=== PATIENT | male | born 1975 | race Hispanic/Latino ===

== ENCOUNTER 2019-03-08 17:14 | Emergency (ER) | payer OTHER ==
[2019-03-08] MEDS ORDERED: TRIPLE ANTIBIOTIC TP ONE (17:20)
[2019-03-08] MEDS ORDERED: LET TOPICAL TP ONE (17:20)
[2019-03-08] MEDS ORDERED: NACL 0.9% IR ONE (17:20)
[2019-03-08] MEDS ORDERED: BOOSTRIX IM ONE (17:20)
[2019-03-08] MEDS ORDERED: XYLOCAINE 1% 20 mL INFILTRATI ONE (17:20)
--- NOTE | 2019-03-08 17:21 | Event Note ---
ED Screening Note ED Screening Note: puncture wound to hand today bleeding controlled concern for lig/tendon involvement This initial assessment/diagnostic orders/clinical plan/treatment(s) is/are subject to change based on patients health status, clinical progression and re- assessment by fellow clinical providers in the ED. Further treatment and workup at subsequent clinical providers discretion. Patient/guardian urged not to elope from the ED as their condition may be serious if not clinically assessed and managed. Initial orders include:
[2019-03-08] MEDS ORDERED: ANCEF IM ONE (17:22)
--- NOTE | 2019-03-08 18:15 | XRay Report ---
PROCEDURE: XR HAND 3+V LT TECHNIQUE: Left hand 3 views HISTORY: SP PUNCTURE WOUND; PAIN MID HAND COMPARISONS: FINDINGS: No acute fracture identified. No dislocation seen. No radiopaque foreign bodies are observed. Joint s paces are within normal limits. IMPRESSION: Negative hand series. This document is electronically signed by Gómez Sánchez MD., Mar 08 2019 07:13:35 PM ET
[2019-03-08] MEDS ORDERED: WATER FOR INJ Sterile (PF) 10 ML ONE (18:22)
--- NOTE | 2019-03-08 19:39 | Emergency Department Report ---
HPI - General Chief Complaint: Wound/Laceration Time Seen by Provider: 03/08/19 17:19 - HPI HPI: 43-year-old male presents to the emergency department with complaint that he accidentally stabbed himself in the left hand with a knife. The patient is right-hand dominant and was using a knife to try and open a package when it slipped and went into his left palm. Since that time he has had some discomfort, some mild swelling, and has some difficulty with movement of his fourth and fifth fingers. He is unable to completely flex the pinky finger and he is unable to completely extend the fourth/ring finger. The patient says that he is up-to-date with his tetanus vaccination. He did not take anything for her symptoms prior to presentation. ED Past Medical Hx - Past Medical History Previous Medical History?: No - Surgical History Past Surgical History?: No - Social History Smoking Status: Never Smoker Substance Use Type: None - Medications Home Medications: Home Medications Medication Instructions Recorded Confirmed Last Taken Type HYDROcodone/APAP 5-325 [Bond 1 each PO Q6HR PRN #12 tablet 03/08/19 Unknown Rx 5/325] Sulfamethoxazole/Trimethoprim 1 each PO BID #14 tablet 03/08/19 Unknown Rx [Bactrim DS TAB] ED Review of Systems ROS: Stated complaint: L HAND INJURY Other details as noted in HPI Comment: All other systems reviewed and negative Constitutional: denies: chills, fever Eyes: denies: eye pain, vision change ENT: denies: ear pain, throat pain Respiratory: denies: cough, shortness of breath Cardiovascular: denies: chest pain, palpitations Gastrointestinal: denies: abdominal pain, vomiting Genitourinary: denies: dysuria, discharge Musculoskeletal: arthralgia. denies: back pain Skin: other (left palm laceration). denies: rash Neurological: numbness (there is some decreased sensation or numbness to the left pinky finger). denies: headache Physical Exam - Physical Exam Vital Signs: Vital Signs 03/08/19 17:38 Temperature 98 F Pulse Rate 98 H Respiratory 16 Rate Blood Pressure 158/101 O2 Sat by Pulse 98 Oximetry Physical Exam: GENERAL: The patient is well-developed well-nourished. HENT: Normocephalic. Atraumatic. Patient has moist mucous membranes. EYES: Extraocular motions are intact. NECK: Supple. Trachea is midline. CHEST/LUNGS: Clear to auscultation. There is no respiratory distress noted. HEART/CARDIOVASCULAR: Regular. There is no tachycardia. There is no murmur. ABDOMEN: There is no abdominal distention. SKIN: There is a 2 cm laceration to the mid to distal left palm in between the fourth and fifth fingers that is linear and approximated. There is some mild left dorsal hand swelling. NEURO: The patient is awake, alert, and oriented. The patient is cooperative. The patient has no focal neurologic deficits. The patient has normal speech. MUSCULOSKELETAL: There is tenderness to palpation of the left palm or the patient has a laceration and stab injury. The left fifth finger appears to mostly staying in full extension and he has difficulty flexing the finger, especially at the PIP joint. The left fourth finger appears stuck in mid flexion at the PIP joint and he is unable to fully extend it. There is capillary refill less than 2 seconds to all 5 fingers of the left hand and he has a radial pulse of +2 over 4. . ED Course Vital Signs 03/08/19 17:38 Temperature 98 F Pulse Rate 98 H Respiratory 16 Rate Blood Pressure 158/101 O2 Sat by Pulse 98 Oximetry - Consultations Consultation #1: 03/08/19 20:05 I called [facility] and spoke with Dr Toth, who is a plastic surgeon and hand surgery fellow, who is aeronautical inspector for the orthopedic hand team. Since the case presentation and physical examination and says that the patient is safe for discharge home and that they would not offer him any emergent surgical options for a tendon laceration as long as the patient is perfusing well. He agrees with the plan for a splint, antibiotics, pain control and the patient will need to follow up with a hand surgeon within 7 days. - Laceration /Wound Repair Left Hand Wound Location: upper extremity (left palm) Irrigated w/ Saline (ccs): 50 Anesthesia: 1% Lidocaine Volume Anesthetic (ccs): 2 Wound Repaired With: sutures Suture Size/Type: 5:0 Number of Sutures: 2 Layer Closure?: No Sterile Dressing Applied?: Yes ED Medical Decision Making - Radiology Data Radiology results: image reviewed interpreted by me: X-ray of his hand does not show any fracture, dislocation or any acute process. - Medical Decision Making This patient presents with a laceration to the left hand and some difficulty with range of motion of the left fourth and fifth fingers as well as some numbness or decreased sensation after accidentally stabbing himself in the hand with a knife while trying to open a package. An x-ray was done that does not show any fracture, dislocation or any acute process. The pinky finger appears to have difficulty with full flexion and the ring finger has difficulty with full extension. Given this presentation, he may have a flexor tendon laceration and a extensor tendon laceration respectively. However the patient is vascularly intact with a good radial pulse and capillary refill to all of the fingers on the left hand. The patient does have some range of motion of the affected fingers. As per the consultation section, I spoke with a hand surgeon who agrees with the plan for outpatient follow-up with splint, pain medication and antibiotics and that the patient should follow up within 7 days. The laceration was loosely approximated with 2 sutures. I spoke with the patient great detail regarding the imaging findings, the discussion with the hand surgeon, the need to follow up within 7 days and outpatient follow-up. He understands and agrees to plan. The patient will return to the ER with any worsening of his symptoms or any acute distress. - Differential Diagnosis soft tissue laceration, tendon laceration, fracture Critical Care Time: No Critical care attestation.: If time is entered above; I have spent that time in minutes in the direct care of this critically ill patient, excluding procedure time. ED Disposition Clinical Impression: Stab wound of left hand with tendon involvement Qualifiers: Encounter type: initial encounter Qualified Code(s): S61.412A - Laceration without foreign body of left hand, initial encounter Disposition: DC-01 TO HOME OR SELFCARE Is pt being admited?: No Condition: Stable Instructions: Laceration (ED) Additional Instructions: I spoke with Dr Toth at [facility] and he says that you can follow up at the orthopedic clinic within 7 days, but I recommend getting in as soon as possible. You are free to see any orthopedist, or hand surgeon that you like but I will provide you with his referral information. Return to the emergency Department with any worsening of your symptoms or signs of infection such as: increased swelling, development of fever, unbearable pain, discharge of pus, surrounding redness. Take the antibiotics as prescribed. You have been prescribed a medication that is sedating and therefore should not be taken prior to driving, working, and responsible for children and in no way should be mixed with alcohol of any quantity. Remain in the splint until follow-up with the orthopedist or hand surgeon. Prescriptions: Sulfamethoxazole/Trimethoprim [Bactrim DS TAB] 1 each PO BID #14 tablet HYDROcodone/APAP 5-325 [Bond 5/325] 1 each PO Q6HR PRN #12 tablet PRN Reason: Pain Referrals: [facility]Other] - [facility] (Call to make an appointment. You MUST be seen within 1 week. ) Time of Disposition: 19:40
[2019-03-08 19:51] VITALS: BP 128/95
== END 2019-03-08 19:58 | disposition home or self-care (01) ==
LOC: ED 17:14
DX: S61.412A Laceration without foreign body of left hand, initial encounter (principal); W26.0XXA Contact with knife, initial encounter; Y93.89 Activity, other specified; Y92.89 Other specified places as the place of occurrence of the external cause; Y99.8 Other external cause status
CPT/HCPCS: 12001; 73130; 90471; 90715; 96372; 99283; J0690; A6250